=== PATIENT | female | born 1995 | race Caucasian/White ===

== ENCOUNTER 2025-03-04 23:05 | Inpatient (IN) | payer OTHER ==
[2025-03-04] MEDS: LACTATED RINGERS SOLUTION 1,000 ML IV SCH (23:50)
[2025-03-04 23:55] VITALS: BMI 28.3
[2025-03-05 00:12] LABS: INR 0.98 (0.83-1.09); PROTHROMBIN TIME (PATIENT) 10.8 SEC (9.7-13.0)
[2025-03-05 00:14] LABS: ACTIVATED PTT 27.7 SECONDS (25.2-36.5)
[2025-03-05] MEDS: OXYTOCIN 30 UNITS in 0.9% NS 30 UNIT/500 ML INFUS.BAG IVPB SCH (01:15)
[2025-03-05] MEDS ORDERED: FENTANYL/BUPIVACAINE/NS/PF - PCEA - 50 ML DISP.SYRIN EP ONE ×2 (03:34→09:04)
[2025-03-05] MEDS ORDERED: NALOXONE HCL 0.4 MG/ML VIAL IVPUSH PRN (03:56)
[2025-03-05] MEDS ORDERED: FENTANYL CITRATE/PF 50 MCG/ML VIAL ONE ×2 (03:58→13:31)
[2025-03-05] MEDS ORDERED: BUPIVACAINE HCL/PF 0.25% (2.5MG/ML) 10 ML VIAL ONE (03:58)
[2025-03-05] MEDS: FENTANYL/BUPIVACAINE/NS/PF - PCEA - 50 ML DISP.SYRIN EP SCH (04:17)
[2025-03-05] MEDS: ELECTROLYTE-148 SOLN 1,000 ML IV SCH (04:30)
[2025-03-05] MEDS: CITRIC ACID/SODIUM CITRATE 30 ML UNIT-DOSE CUP PO ONE (12:10)
[2025-03-05] MEDS ORDERED: OXYTOCIN 30 UNITS in 0.9% NS 30 UNIT/500 ML INFUS.BAG IVPB ONE (13:25)
[2025-03-05] MEDS ORDERED: morphine SULFATE/PF 1 MG/2 ML (2cc Syringe - QUVA) ONE ×2 (13:44)
[2025-03-05] MEDS ORDERED: ACETAMINOPHEN INJECTION 100 ML ONE (14:05)
[2025-03-05] MEDS ORDERED: OXYTOCIN 20 UNITS in 0.9% NS 20 UNIT/1,000 ML INFUS.BAG IV ONE (14:25)
[2025-03-05] MEDS: OXYTOCIN 20 UNITS in 0.9% NS 20 UNIT/1,000 ML INFUS.BAG IV SCH (14:35)
[2025-03-05] MEDS: METHYLERGONOVINE MALEATE 0.2 MG/1 ML AMP IM ONE (14:50)
[2025-03-05] MEDS: IBUPROFEN 600 MG TABLET (FP) PO PRN (17:51)
[2025-03-05] MEDS: METHYLERGONOVINE MALEATE 0.2 MG TABLET (FP) PO SCH (17:51)
[2025-03-05] MEDS: ACETAMINOPHEN 325 MG TABLET (FP) PO PRN (20:22)
[2025-03-05] MEDS: SIMETHICONE 80 MG TAB.CHEW (FP) PO PRN (20:22)
[2025-03-05] MEDS: IBUPROFEN 800 MG/8 ML IJ IVPB PRN (23:23)
[2025-03-06 08:13] LABS: IMMATURE PLATELET FRACTION # 20.30 x10^3/uL; MCHC 33.2 g/dl (32.2-35.5); MEAN CELL VOLUME 104.0 fl (79.4-94.8); RDW 12.5 % (12.1-16.5)
[2025-03-06] MEDS: ACETAMINOPHEN 325 MG TABLET (FP) PO PRN (10:32)
[2025-03-06] MEDS ORDERED: BISACODYL 10 MG SUPP.RECT RC PRN (12:40)
[2025-03-07] MEDS: IBUPROFEN 600 MG TABLET (FP) PO PRN (21:58)
[2025-03-07 23:54] VITALS: BP 107/53; PULSE 66; RESP 18; TEMP 98.3
[2025-03-08 08:24] LABS: ABSOLUTE IMMATURE GRANULOCYTES 0.06 x10^3/uL (0.0-0.031); BASOPHILS # 0.06 x10^3/uL (0.01-0.08); EOSINOPHIL % 3.0 % (0.7-5.8); EOSINOPHILS # 0.20 x10^3/uL (0.04-0.36); MCHC 33.4 g/dl (32.2-35.5); MEAN CELL VOLUME 104.0 fl (79.4-94.8); MEAN PLT VOLUME 12.6 fl (9.4-12.3); MONOCYTE # 0.41 x10^3/uL (0.24-0.86); MONOCYTE % 6.2 % (4.7-12.5); RDW 12.7 % (12.1-16.5)
== END 2025-03-08 16:02 | disposition home or self-care (01) | DRG 540 ==
LOC: JLDR 23:05 → J3W 03-05 17:00
PROVIDERS: ADMIT Obstetrics & Gynecology; ATTEND Obstetrics & Gynecology
PROC: 10D00Z1 Extraction of Products of Conception, Low, Open Approach (ICD-10-PCS; principal; 2025-03-05)
DX: O99.12 Other diseases of the blood and blood-forming organs and certain disorders involving the immune mechanism complicating childbirth (principal); D69.6 Thrombocytopenia, unspecified; O42.90 Premature rupture of membranes, unspecified as to length of time between rupture and onset of labor, unspecified weeks of gestation; O62.1 Secondary uterine inertia; Z3A.39 39 weeks gestation of pregnancy; Z37.0 Single live birth
CPT/HCPCS: 36415; 59025; 80053; 81003; 82542; 82570; 82977; 83010; 84156; 84550; 85025; 85032; 85610; 85730; 86780; 86850; 86900; 86901; 87340; 88307-TC; 94010